=== PATIENT | female | born 1950 | race Caucasian/White ===

== ENCOUNTER 2021-03-15 09:58 | Day surgery (SDC) | payer MEDICARE ==
[2021-03-14 15:42] LABS: BASOPHILS # (AUTO) 0.1 X10'3 (0-0.2); BASOPHILS % (AUTO) 0.6 % (0-1); EOSINOPHILS # (AUTO) 0.2 X10'3 (0-0.9); EOSINOPHILS % (AUTO) 1.8 % (0-6); LYMPHOCYTES # (AUTO) 2.6 X10'3 (1.1-4.8); LYMPHOCYTES % (AUTO) 27.5 % (21-51); MEAN CORPUSCULAR HEMOGLOBIN 29.7 PG (27.0-31.0); MEAN CORPUSCULAR HGB CONC 33.6 g/dL (33.0-36.5); MEAN CORPUSCULAR VOLUME 88.4 FL (78-98); MEAN PLATELET VOLUME 6.8 FL (7.4-10.4); MONOCYTES # (AUTO) 0.8 X10'3 (0-0.9); MONOCYTES % (AUTO) 8.3 % (2-12); NEUTROPHILS # (AUTO) 5.9 X10'3 (1.8-7.7); NEUTROPHILS % (AUTO) 61.8 % (42-75); PRE OP HEMATOCRIT 42.6 % (35.0-45.0); PRE OP HEMOGLOBIN 14.3 g/dL (12.0-16.0); PRE OP PLATELET COUNT 346 X10'3 (140-440); RED BLOOD COUNT 4.82 X10'6 (4.20-5.60)
[2021-03-14 15:56] LABS: ALBUMIN/GLOBULIN RATIO 1.2 (1.1-1.5); ALKALINE PHOSPHATASE 79 IU/L (46-116); BLOOD UREA NITROGEN 17 MG/DL (7-18); BUN/CREATININE RATIO 22.1 (6.6-38.0); CALCIUM 9.7 MG/DL (8.5-10.1); CHLORIDE 106 MMOL/L (99-107); CREATININE 0.77 MG/DL (0.40-0.90); PRE OP ALT 24 U/L (30-65); PRE OP ANION GAP 11 (8-16); PRE OP AST 22 U/L (10-37); PRE OP BILIRUB, TOTAL 0.5 MG/DL (0.0-1.0); PRE OP GLUCOSE 94 MG/DL (70-104); PRE OP SODIUM 143 MMOL/L (135-145); TOTAL CARBON DIOXIDE 26.1 MMOL/L (24-32); TOTAL PROTEIN 7.3 G/DL (6.4-8.2); eGFR 74 ML/MIN
[2021-03-15] VITALS (12 sets, daily range): BP systolic 112–136; BP diastolic 47–82
[~2021-03-15] VITALS: Ht 167.6 cm; Wt 74.9 kg
[~2021-03-15 09:58] MED LIST: CARV-50 PO; CHOL20002 PO; DOCUMENT DATE & TIME OF BETA-BLOCKER PO ONE; HYDR25TA4 PO; LISI10TA27 PO; desflurane 240ml liquid inh. IH ONE; famotidine 20mg tablet PO ONE; ringers solution, lacted 1,000 ML IV SCH
[2021-03-15] MEDS ORDERED: cefazolin/dext.iso 2gm/50ml 50 ML IV ONE (11:35)
[2021-03-15] MEDS ORDERED: ringers solution, lacted 1,000 ML IV SCH ×2 (11:35→13:20)
[2021-03-15] MEDS ORDERED: midazolam 1 mg/ML 2ml injection ONE (12:43)
[2021-03-15] MEDS ORDERED: fentaNYL/PF 50MCG/1 ML 2ML syringe ONE (12:43)
[2021-03-15] MEDS ORDERED: ondansetron/PF 4mg/2ml inj ONE (12:57)
[2021-03-15] MEDS ORDERED: propofol inj 20 ML IV ONE (12:57)
[2021-03-15] MEDS ORDERED: ROPIVAcaine 0.5% (5mg/ml) 30ml vial ONE ×2 (12:57)
[2021-03-15] MEDS ORDERED: LIDOcaine 2% (20mg/ml) 5ml vial ONE (12:57)
[2021-03-15] MEDS ORDERED: fentaNYL/PF 50MCG/1 ML 2ML syringe IV PRN ×2 (13:20)
[2021-03-15] MEDS ORDERED: morphine 2 MG/ML inj. syringe IV PRN (13:20)
[2021-03-15] MEDS ORDERED: enalaprilat dihydrate 2.5mg/2ml vial IV PRN (13:20)
[2021-03-15] MEDS ORDERED: morphine 4 MG/ML inj SYRINge IV PRN (13:20)
[2021-03-15] MEDS ORDERED: hydrALAZINE 20mg/ml inj. IV PRN (13:20)
[2021-03-15] MEDS ORDERED: ondansetron/PF 4mg/2ml inj IV PRN (13:20)
--- NOTE | 2021-03-15 13:41 | NUR ---
Received from OR via [facility] IN STABLE CONDTION , accompanied by Anesthesiologist and [employer]LL MAN report given by GREY ROLL MAN AND Anesthesiolgist.
--- NOTE | 2021-03-15 15:41 | NUR ---
PATIENT DISCHARGED FROM PACU IN STABLE CONDITION AFTER WRITTEN AND VERBAL DISCHARGE INSTRUCTIONS GIVEN. PATIENT GAVE VERBAL UNDERSTANDING OF INSTRUCTIONS GIVEN. PATIENT LEFT FACILITY VIA WHEELCHAIR WITH RN. Addendum: 03/15/21 at 1636 by Holly Bernardo RN Amended: Links added.
[2021-03-15] MEDS ORDERED: lisinopril 10 MG tablet PO SCH (20:00)
[2021-03-15] MEDS ORDERED: carVEDilol 12.5mg tablet PO SCH (20:00)
[2021-03-16] MEDS ORDERED: cholecalciferol (vitamin D3) 1,000 unit (25mcg) tablet PO SCH (08:00)
[2021-03-16] MEDS ORDERED: HYDROchlorothiazide 25mg tablet PO SCH (08:00)
== END 2021-03-15 15:41 | disposition home or self-care (01) ==
LOC: PAS 09:58
PROVIDERS: ATTEND Orthopaedic Surgery
DX: S52.571A Other intraarticular fracture of lower end of right radius, initial encounter for closed fracture (principal); G89.18 Other acute postprocedural pain; I11.0 Hypertensive heart disease with heart failure; I50.9 Heart failure, unspecified; Z90.49 Acquired absence of other specified parts of digestive tract; Z98.890 Other specified postprocedural states; Z79.899 Other long term (current) drug therapy; Z72.89 Other problems related to lifestyle; Z20.822 Contact with and (suspected) exposure to COVID-19; W19.XXXA Unspecified fall, initial encounter; Y93.89 Activity, other specified; Y92.89 Other specified places as the place of occurrence of the external cause; Y99.8 Other external cause status
CPT/HCPCS: 25609; 36415; 64417; 76942; 80053; 82948; 85025; 87635; A6222; C1713; C9803; J2250; J2405; J2704; J2795; J3010; J3490; J7030; J7120; Z7506; Z7508; Z7512; A4618; A6446; A6449; A7000